=== PATIENT | male | born 1945 | race Caucasian/White ===

== ENCOUNTER 2020-11-04 15:48 | Emergency (ER) | payer MEDICARE ==
[2020-11-04] MEDS ORDERED: NORCO 5-325 TA1 EACH PO (17:30)
[2020-11-04] MEDS ORDERED: KEFLEX250 MG PO (17:30)
== END 2020-11-04 17:45 | disposition home or self-care (01) ==
LOC: FER 15:48
DX: S61.012A Laceration without foreign body of left thumb without damage to nail, initial encounter (principal); I10 Essential (primary) hypertension; Z79.82 Long term (current) use of aspirin; Z79.899 Other long term (current) drug therapy; Z23 Encounter for immunization; W29.8XXA Contact with other powered hand tools and household machinery, initial encounter; Y92.009 Unspecified place in unspecified non-institutional (private) residence as the place of occurrence of the external cause
CPT/HCPCS: 73140; 90471; 90715